=== PATIENT | female | born 1995 | race Caucasian/White ===

== ENCOUNTER 2017-04-09 14:43 | Emergency (ER) | payer OTHER ==
[~2017-04-09] VITALS: Ht 154.9 cm; Wt 59.6 kg
[~2017-04-09 14:43] MED LIST: NAPROSYN500 MG PO
[2017-04-09 17:19] LABS: EOSINOPHIL (%) 3.8 % (0-5); EOSINOPHIL COUNT 0.2 K/uL (0-0.3); HEMATOCRIT 38.9 % (36.0-46.0); IMMATURE GRANULOCYTE (%) 0.2 % (0.0-0.7); INSTRUMENT ABS NEUTROPHIL CT 3.9 K/uL; LYMPHOCYTE COUNT 1.7 K/uL (1.0-2.8); MCH 28.1 PG (29.0-34.0); MCHC 33.9 G/DL (30.0-36.0); MCV 82.9 FL (83-99); MONOCYTE (%) 7.1 % (3-12); MONOCYTE COUNT 0.5 K/uL (0-0.8); NEUTROPHIL (%) 61.3 % (45-76); NEUTROPHIL COUNT 3.9 K/uL (1.8-6.4); PLATELET COUNT 268 K/uL (156-360); RBC DIS.WIDTH-CV 12.5 % (11.8-14.6); RED BLOOD COUNT 4.69 M/uL (3.80-5.20); WHITE BLOOD COUNT 6.3 K/uL (4.1-10.2)
[2017-04-09 17:29] LABS: CHLORIDE 109 mEq/L (99-109); POTASSIUM 3.8 mEq/L (3.7-5.4); SODIUM 142 mEq/L (136-147)
[2017-04-09 17:30] LABS: GLUCOSE 94 mg/dL (70-99)
[2017-04-09 17:32] LABS: ANION GAP 11 MEQ/L (2-14)
[2017-04-09 17:34] LABS: GFR ESTIMATE (CALCULATED) > 59 mL/min/
[2017-04-09 17:35] LABS: UREA NITROGEN (BUN) 18 mg/dL (9-23)
[2017-04-09 17:43] LABS: QUANTITATIVE HCG < 4.0 MIU/ML
[2017-04-09 18:18] VITALS: BP 102/68
== END 2017-04-09 18:20 | disposition home or self-care (01) ==
LOC: EME 14:43
PROVIDERS: Physician Assistant
DX: R55 Syncope and collapse (principal); R42 Dizziness and giddiness
CPT/HCPCS: 80048; 84702; 85025; 93005; 99281; 99284